=== PATIENT | female | born 1960 | race Caucasian/White ===

== ENCOUNTER → 2020-08-08 10:17 | Outpatient (CLI) | payer BC, SELFPAY ==
--- NOTE | ~2020-08-08 | MM_ITS ---
EXAMINATION: MM screening rich BI w azul HISTORY: Screening mammogram TECHNIQUE: Craniocaudal and mediolateral oblique 3-D tomosynthesis images were obtained and synthetic 2-D images were generated. CAD analysis was submitted and interpreted. COMPARISON: 07/04/2019, 06/26/2018, 06/22/2017 bilateral digital screening mammogram examinations BREAST PARENCHYMAL COMPOSITION: There are scattered areas of fibroglandular density. FINDINGS: There is focal asymmetric density in the lower inner quadrant of the left breast. Diagnosti c left mammogram is recommended, with ultrasound if required. Stable benign intramammary axillary tail lymph nodes on the right. Otherwise there is no evidence of suspicious mass, calcification, or architectural distortion to sugg est malignancy in either breast. There has been no suspicious interval change. IMPRESSION: 1. Asymmetric focal opacity in the lower inner left breast 2. Diagnostic left mammogram is recommended, with ultrasound if required. BI-RADS Category 0: Incomplete: Needs additional imaging evaluation. Reviewed, dictated and finalized at location A. MAKER
== END ==
PROVIDERS: PCP Family Medicine; Visit Provider Nurse Practitioner
DX: Z12.31 Encounter for screening mammogram for malignant neoplasm of breast (principal); R92.8 Other abnormal and inconclusive findings on diagnostic imaging of breast
CPT/HCPCS: 77063; 77067

== ENCOUNTER → 2020-09-02 08:21 | Outpatient (CLI) | payer BC, SELFPAY ==
--- NOTE | ~2020-09-02 | MMUS_ITS ---
EXAMINATION: MM diagnostic mammo unilat LT, US breast LT limited HISTORY: Follow-up left breast asymmetry TECHNIQUE: Additional 3-D tomosynthesis images of the left breast were performed and synthetic 2-D im ages were generated. CAD analysis was submitted and interpreted. High resolution Limited left breast ultrasound was performed. COMPARISON: Comparison to multiple prior studies sequentially, with oldest reviewed study dated 06/05. BREAST PARENCHYMAL COMPOSITION: Breast composed of scattered areas of fibroglandular density. FINDINGS: MAMMOGRAPHIC FINDINGS: There is focal asymmetry medial aspect of the left breast on CC view, not well visualized on MLO or m ediolateral views. No suspicious calcifications or skin thickening. ULTRASOUND: Limited left breast ultrasound: @1-2:00 position of the left breast near the Walker there is an oval circumscribed hypoechoic mass m easuring 4 x 3 mm with internal vascularity. At 9:00, 5 cm from the nipple there is an oval hypoechoi c mass with slightly irregular margins and posterior shadowing measuring 1.4 x 0.8 x 1.0 cm. No inter nal vascularity. IMPRESSION: 1. Left breast masses located at 1-2:00 near the areola and at 9:00, 5 cm from the nipple. 2. Ultrasound-guided biopsy of these masses recommended. BI-RADS category 4, suspicious findings. Reviewed, dictated and finalized at location A. [employer] IMPRESSION: 1. Left breast masses located at 1-2:00 near the areola and at 9:00, 5 cm from the nipple. 2. Ultrasound-guided biopsy of these masses recommended. BI-RADS category 4, suspicious findings.
== END ==
PROVIDERS: PCP Family Medicine; Visit Provider Obstetrics & Gynecology Gynecology
DX: R92.8 Other abnormal and inconclusive findings on diagnostic imaging of breast (principal)
CPT/HCPCS: 76642; 77065

== ENCOUNTER 2020-09-29 13:34 | Outpatient (CLI) | payer BC, SELFPAY ==
--- NOTE | ~2020-09-29 | MMUS_ITS ---
US breast biopsy LT w image, MM post biopsy invasive LT EXAMINATION: US GUIDED NEEDLE BIOPSY WITH VAC UUM ASSISTANCE DATE: 09/29/2020 14:46 PRECISION OPTICS TECHNICIAN INDICATION: Left breast masses seen on recent examination. Ultrasound-guided core biopsy is requeste d to evaluate for malignancy. TECHNIQUE AND FINDINGS: The risks and potential benefits of the procedure were discussed with the patient, and written inform ed consent was obtained. After sterile preparation of the left breast, 1% lidocaine was utilized for local anesthesia. 1% lidocaine with epinephrine was used for deep anesthesia. Initial ultrasound examination redemonstrates a 4 mm oval hypoechoic mass without internal vascularit y. There is posterior acoustic enhancement. Dr. Madden was present during the examination verifying lac k of internal vascularity. This is likely benign complicated cyst, fibroadenoma or intramammary lymph node. Short-term follow-up left breast ultrasound recommended to assess stability of this lesion. Se cond lesion reidentified at 9:00, 5 cm from the nipple. A 10G vacuum-assisted biopsy gun needle was advanced through to the outer edge of the region of inter est from a left approach utilizing sonographic guidance. A total of three tissue core samples were o btained through the lesion. An Inrad tissue marker clip was then placed at the biopsy site. Hemostas is was achieved. The patient tolerated procedure well and there was no evidence of immediate complication. The patien t was given verbal instructions partly is from the department. Left breast mammograms to document ti ssue marker clip placement. The tissue samples were submitted to surgical pathology for histologic an alysis. IMPRESSION: 1. Successful ultrasound-guided vacuum-assisted biopsy of left breast mass at 9:00, 5 cm from the ni pple with tissue marker placement. Please refer to pathology report for histologic analysis. 2: Mass located at 1-2:00 measures 4 mm and is likely benign. Six-month follow-up left breast ultraso und recommended to assess stability. BI-RADS Category 3. Reviewed, dictated and finalized at location A. ISION OPTICS TECHNICIAN IMPRESSION: 1. Successful ultrasound-guided vacuum-assisted biopsy of left breast mass at 9:00, 5 cm from the nipple with tissue marker placement. Please refer to pathol ogy report for histologic analysis. 2: Mass located at 1-2:00 measures 4 mm and is likely benign. Six-month follow- up left breast ultrasound recommended to assess stability. BI-RADS Category 3.
== END 2020-09-29 13:35 | disposition home or self-care (01) ==
PROVIDERS: PCP Family Medicine; Visit Provider Surgery
DX: R92.8 Other abnormal and inconclusive findings on diagnostic imaging of breast (principal)
CPT/HCPCS: 19083; 88305

== ENCOUNTER → 2021-08-13 08:47 | Outpatient (CLI) | payer OTHER, SELFPAY ==
--- NOTE | ~2021-08-13 | MMUS_ITS ---
EXAMINATION: MM diagnostic rich BI w azul, US breast LT limited HISTORY: Follow-up breast masses TECHNIQUE: Additional 3-D tomosynthesis images of the breasts were performed and synthetic 2-D images were generated. CAD analysis was submitted and interpreted. High resolution Limited left breast ultr asound was performed. COMPARISON: Comparison to multiple prior studies sequentially, with oldest reviewed study dated 06/05. BREAST PARENCHYMAL COMPOSITION: Breast composed of scattered areas of fibroglandular density. FINDINGS: MAMMOGRAPHIC FINDINGS: The breasts are stable. No new masses, calcifications or architectural distortion are identified in e ither breast to suggest malignancy. ULTRASOUND: Limited left breast ultrasound: In the subareolar location of the left breast there is an oval hypoec hoic 4 mm mass with parallel orientation, no significant posterior features and marginal vascularity, unchanged from prior examination allowing for differences of technique. At 9:00, 5 cm from the nippl e there is a oval hypoechoic mass measuring 7 x 6 x 7 mm with parallel orientation, no internal vascu larity and no significant posterior features. This mass has diminished in size compared with prior ex amination when it measured 1.5 x 0.8 x 1.0 cm, consistent with a benign entity. IMPRESSION: 1. Stable or diminished size of probable benign left breast masses. No interval change to bilateral m ammogram. 2. Recommend 6 month follow-up targeted left breast ultrasound. BI-RADS category 3, probably benign findings. Reviewed, dictated and finalized at location A. INE SET UP IMPRESSION: 1. Stable or diminished size of probable benign left breast masses. No interval change to bilateral mammogram. 2. Recommend 6 month follow-up targeted left breast ultrasound. BI-RADS category 3, probably benign findings.
== END ==
PROVIDERS: PCP Surgery; Visit Provider Nurse Practitioner
DX: N63.20 Unspecified lump in the left breast, unspecified quadrant (principal); R92.8 Other abnormal and inconclusive findings on diagnostic imaging of breast
CPT/HCPCS: 76642; 77062; 77066; G0279

== ENCOUNTER → 2022-02-12 08:55 | Outpatient (CLI) | payer OTHER, SELFPAY ==
--- NOTE | ~2022-02-12 | US_ITS ---
EXAMINATION: US breast LT limited HISTORY: Six-month follow-up for probably benign left breast masses TECHNIQUE: Limited left breast ultrasound is performed. COMPARISON: 08/13/2021, 09/02/2020 FINDINGS: No definite mass is identified at the 9:00 location in the area previously described. There is a stable 4 mm mass at the 1:00 location near the nipple with no posterior features and questionab le peripheral vascularity. There is a 3 mm cyst at the 11:00 location near the nipple. IMPRESSION: Benign left breast masses. Annual screening mammography is recommended, due in August. BI-RADS Category 2: Benign finding(s). Reviewed, dictated and finalized at location A.
== END ==
PROVIDERS: PCP Family Medicine; Visit Provider Obstetrics & Gynecology Gynecology
DX: N63.20 Unspecified lump in the left breast, unspecified quadrant (principal); R92.8 Other abnormal and inconclusive findings on diagnostic imaging of breast
CPT/HCPCS: 76642

== ENCOUNTER → 2022-10-22 10:29 | Outpatient (CLI) | payer OTHER, SELFPAY ==
--- NOTE | ~2022-10-22 | MM_ITS ---
EXAMINATION: MM screening rich BI w azul HISTORY: Screening mammogram TECHNIQUE: Craniocaudal and mediolateral oblique 3-D tomosynthesis images were obtained and synthetic 2-D images were generated. CAD analysis was submitted and interpreted. COMPARISON: 02/12/2022 Limited left breast ultrasound 08/13/2021 diagnostic bilateral mammogram and limited left breast ultrasound examination BREAST PARENCHYMAL COMPOSITION: There are scattered areas of fibroglandular density. FINDINGS: There is no evidence of suspicious mass, calcification, or architectural distortion to sugg est malignancy in either breast. There has been no suspicious interval change. IMPRESSION: 1. No mammographic evidence of malignancy. 2. Recommend routine screening mammography in one year. BI-RADS Category 1: Negative Reviewed, dictated and finalized at location A. RITY SYSTEMS TECHNICIAN
== END ==
PROVIDERS: Visit Provider Nurse Practitioner
DX: Z12.31 Encounter for screening mammogram for malignant neoplasm of breast (principal)
CPT/HCPCS: 77063; 77067

== ENCOUNTER 2024-01-19 10:37 | Outpatient (CLI) | payer OTHER, SELFPAY ==
--- NOTE | ~2024-01-19 | MM_ITS ---
EXAMINATION: MM screening rich BI w azul HISTORY: Screening mammogram TECHNIQUE: Craniocaudal and mediolateral oblique 3-D tomosynthesis images were obtained and synthetic 2-D images were generated. CAD analysis was submitted and interpreted. COMPARISON: 11/19/2022 bilateral screening mammogram February 12, 2022 Limited left breast ultrasound August 13, 2021 diagnostic bilateral mammogram and limited left breast ultrasound BREAST PARENCHYMAL COMPOSITION: There are scattered areas of fibroglandular density. FINDINGS: There is no evidence of suspicious mass, calcification, or architectural distortion to sugg est malignancy in either breast. There has been no suspicious interval change. IMPRESSION: 1. No mammographic evidence of malignancy. 2. Recommend routine screening mammography in one year. BI-RADS Category 1: Negative Reviewed, dictated and finalized at location B.
--- NOTE | ~2024-01-19 | DEXA_ITS ---
Bone Density Report Name: KIRK ZAMORA Age: 63 Sex: Female Ethnicity: White Date of : 1960 Indication: postmenopausal; screening for osteoporosis; height loss; Referring Provider: Shine, Juliette Study: Bone densitometry was performed. Exam Date: January 19, 2024 Accession number: [id number] Bone Density: Region BMD T-score Z-score Classification AP Spine (L1-L4) 0.966 -0.7 0.8 Normal Femoral Neck (Left) 0.925 0.7 2.1 Normal Total Hip (Left) 0.981 0.3 1.4 Normal Femoral Neck (Right) 0.939 0.8 2.2 Normal Total Hip (Right) 1.006 0.5 1.6 Normal Total Hip Mean 0.994 0.4 1.5 Normal World Health Organization criteria for BMD impression classify patients as: Normal (T-score at or above -1.0), Osteopenia (T-score between -1.0 and -2.5), or Osteoporosis (T-score at or below -2.5). 10-year Fracture Risk: FRAX not reported because: All T-scores for Spine Total, Hip Total, Femoral Neck at or above -1.0 Previous Exams: Region Exam Age BMD T-score BMD Change BMD Change Date g/cm2 vs Baseline vs Previous AP Spine(L1-L4) 01/19/2024 63 0.966 -0.7 -0.042 -0.022 07/04/2019 58 0.989 -0.5 -0.020 -0.029* 06/21/2016 55 1.018 -0.3 0.009 0.009 05/14/2013 52 1.009 -0.3 Total Hip(Left) 01/19/2024 63 0.981 0.3 0.044 0.063* 07/04/2019 58 0.919 -0.2 -0.019 -0.003 06/21/2016 55 0.922 -0.2 -0.015 -0.015 05/14/2013 52 0.937 0.0 Total Hip(Right) 01/19/2024 63 1.006 0.5 0.043 0.028* 07/04/2019 58 0.978 0.3 0.015 -0.009 06/21/2016 55 0.987 0.4 0.024 0.024 05/14/2013 52 0.963 0.2 *Denotes significance at 95% confidence level, LSC for AP Spine = 0.022 g/cm2, LSC for Total Hip = 0.027 g/cm2 Clinical Information Provided by Patient: Has used the following medications: Vitamin D, Calcium, MTV Patient maximum height was 67.5 Menopause Age: 51 No regular weight bearing exercise Drinks caffeinated beverages Onset of menses at age 14 Number of children 1 Impression: The patient has normal bone mass. No significant bone loss was observed. Discussion: BONE DENSITY IS ABOVE THE MINIMUM DESIRABLE LEVEL AT ALL SKELETAL SITES TESTED. This patient?s bone mineral density is above the minimum desirable level (T-score -1.0 or better) at all s
== END 2024-01-19 10:38 ==
LOC: MICIMG 10:38
PROVIDERS: PCP Nurse Practitioner; Visit Provider Nurse Practitioner
DX: Z12.31 Encounter for screening mammogram for malignant neoplasm of breast (principal); Z13.820 Encounter for screening for osteoporosis; Z78.0 Asymptomatic menopausal state
CPT/HCPCS: 77063; 77067; 77080

== ENCOUNTER 2025-01-21 10:08 | Outpatient (CLI) | payer OTHER, SELFPAY ==
--- NOTE | ~2025-01-21 | MM_ITS ---
EXAMINATION: MM screening rich BI w azul HISTORY: Screening TECHNIQUE: Craniocaudal and mediolateral oblique 3-D tomosynthesis images were obtained and synthetic 2-D images were generated. CAD analysis was submitted and interpreted. COMPARISON: Comparison to multiple prior studies sequentially, with oldest reviewed study dated 12/2019. BREAST PARENCHYMAL COMPOSITION: Not dense: There are scattered areas of fibroglandular density. FINDINGS: There is no evidence of suspicious mass, calcification, or architectural distortion to sugg est malignancy in either breast. There has been no suspicious interval change. IMPRESSION: 1. No mammographic evidence of malignancy. 2. Recommend routine screening mammography in one year. BI-RADS Category 1: Negative Reviewed, dictated and finalized at location B.
== END 2025-01-21 10:09 | disposition home or self-care (01) ==
LOC: MICIMG 10:09
PROVIDERS: PCP Family Medicine; Visit Provider Nurse Practitioner
DX: Z12.31 Encounter for screening mammogram for malignant neoplasm of breast (principal)
CPT/HCPCS: 77063; 77067